=== PATIENT | male | born 1945 | race Two or more races ===

== ENCOUNTER → 2017-03-09 | Emergency (ER) | payer OTHER ==
[~2017-03-09] VITALS: Ht 167.6 cm; Wt 74.8 kg
[~2017-03-09] MED LIST: CARDIZEM LA240 MG; CIPRO500 MG; LEVOFLOXACIN500 MG PO; LIPITOR20 MG PO; MICRO-K8 MEQ PO; TOPROL XL25 M1
== END | disposition home or self-care (01) ==
LOC: ER 15:11
DX: N41.8 Other inflammatory diseases of prostate (principal); N39.0 Urinary tract infection, site not specified

== ENCOUNTER → 2017-06-29 | Emergency (ER) | payer OTHER ==
[~2017-06-29] VITALS: Ht 175.3 cm; Wt 72.6 kg
== END | disposition left against medical advice (07) ==
LOC: ER 15:04
DX: M54.2 Cervicalgia (principal); N39.0 Urinary tract infection, site not specified

== ENCOUNTER → 2017-07-12 | Outpatient (CLI) | payer OTHER | END | disposition home or self-care (01) | LOC: TOM 07:27 | DX: K59.00 Constipation, unspecified (principal) ==

== ENCOUNTER 2017-08-27 12:26 | Outpatient (CLI) | payer OTHER | END 2017-08-27 15:19 | disposition home or self-care (01) | LOC: RAD 501 12:26 | DX: M54.2 Cervicalgia (principal) ==

== ENCOUNTER 2017-12-11 11:35 | Outpatient (CLI) | payer OTHER | END 2017-12-11 12:56 | disposition home or self-care (01) | LOC: RAD 501 11:35 | DX: M25.572 Pain in left ankle and joints of left foot (principal) ==

== ENCOUNTER 2018-03-01 15:13 | Emergency (ER) | payer OTHER ==
[~2018-03-01] VITALS: Ht 175.3 cm; Wt 77.1 kg
== END 2018-03-01 20:29 | disposition home or self-care (01) ==
LOC: ER 15:13
DX: N39.0 Urinary tract infection, site not specified (principal); R31.0 Gross hematuria

== ENCOUNTER 2019-08-06 12:41 | Outpatient (CLI) | payer OTHER | END 2019-08-06 12:45 | disposition home or self-care (01) | LOC: RAD 12:41 | PROVIDERS: ATTEND General Practice | DX: M15.0 Primary generalized (osteo)arthritis (principal) ==

== ENCOUNTER 2019-09-07 14:16 | Outpatient (CLI) | payer OTHER | END 2019-09-07 15:00 | disposition home or self-care (01) | LOC: OFIC 805 14:16 | PROVIDERS: ATTEND Otolaryngology | DX: M26.623 Arthralgia of bilateral temporomandibular joint (principal); H61.23 Impacted cerumen, bilateral ==

== ENCOUNTER 2019-12-08 10:24 | Outpatient (CLI) | payer OTHER ==
[2019-12-11] MEDS ORDERED: DILTIAZEM 24HR180 MG (14:21)
== END 2019-12-08 11:58 | disposition home or self-care (01) ==
LOC: NUCLEAR 10:24
PROVIDERS: ATTEND Physical Medicine & Rehabilitation
DX: I73.9 Peripheral vascular disease, unspecified (principal); I87.2 Venous insufficiency (chronic) (peripheral)

== ENCOUNTER 2019-12-09 11:14 | Outpatient (CLI) | payer OTHER ==
[2019-12-11] MEDS ORDERED: DILTIAZEM 24HR180 MG (14:21)
== END 2019-12-09 11:17 | disposition home or self-care (01) ==
LOC: NUCLEAR 11:14
PROVIDERS: ATTEND Physical Medicine & Rehabilitation
DX: I73.9 Peripheral vascular disease, unspecified (principal)

== ENCOUNTER → 2019-12-11 | Emergency (ER) | payer OTHER ==
[~2019-12-11] VITALS: Ht 175.3 cm; Wt 81.2 kg
[~2019-12-11] MED LIST changes: +DILTIAZEM 24HR180 MG
== END | disposition left against medical advice (07) ==
LOC: ER 13:48
DX: Z53.20 Procedure and treatment not carried out because of patient's decision for unspecified reasons (principal)

== ENCOUNTER 2020-04-19 13:12 | Outpatient (CLI) | payer OTHER | END 2020-04-19 13:18 | disposition home or self-care (01) | LOC: MRI 13:12 | PROVIDERS: ATTEND Physical Medicine & Rehabilitation | DX: M48.02 Spinal stenosis, cervical region (principal); M50.323 Other cervical disc degeneration at C6-C7 level | CPT/HCPCS: 72141 ==

== ENCOUNTER → 2020-04-29 | Outpatient (CLI) | payer OTHER | END | disposition home or self-care (01) | LOC: RAD 15:21 | PROVIDERS: ATTEND Urology | DX: M54.5 Low back pain (principal) ==

== ENCOUNTER 2020-05-18 14:54 | Outpatient (CLI) | payer OTHER | END 2020-05-18 15:04 | disposition home or self-care (01) | LOC: RAD 14:54 | PROVIDERS: ATTEND Internal Medicine Cardiovascular Disease | DX: R06.02 Shortness of breath (principal); I11.9 Hypertensive heart disease without heart failure ==

== ENCOUNTER → 2020-07-07 | Outpatient (CLI) | payer OTHER | END | disposition home or self-care (01) | LOC: SONOGRAMA 13:53 → MAMO-SONO 14:15 | PROVIDERS: ATTEND General Practice | DX: E04.0 Nontoxic diffuse goiter (principal); E11.69 Type 2 diabetes mellitus with other specified complication; E78.2 Mixed hyperlipidemia; Z68.28 Body mass index [BMI] 28.0-28.9, adult; I11.9 Hypertensive heart disease without heart failure; E66.3 Overweight; E55.9 Vitamin D deficiency, unspecified; E56.8 Deficiency of other vitamins; E05.00 Thyrotoxicosis with diffuse goiter without thyrotoxic crisis or storm ==

== ENCOUNTER 2021-01-18 09:15 | Outpatient (CLI) | payer OTHER | END 2021-01-18 09:30 | disposition home or self-care (01) | LOC: PPH VACUNA 09:15 | PROVIDERS: ATTEND Emergency Medicine Pediatric Emergency Medicine | DX: Z23 Encounter for immunization (principal) ==

== ENCOUNTER 2021-08-02 14:00 | Outpatient (CLI) | payer OTHER | END 2021-08-02 14:10 | disposition home or self-care (01) | LOC: PPH VACUNA 14:00 | PROVIDERS: ATTEND Emergency Medicine Pediatric Emergency Medicine | DX: Z23 Encounter for immunization (principal) ==

== ENCOUNTER 2021-10-20 13:13 | Outpatient (CLI) | payer OTHER | END 2021-10-20 13:14 | disposition home or self-care (01) | LOC: NUCLEAR 13:13 | PROVIDERS: ATTEND Internal Medicine Endocrinology, Diabetes & Metabolism | DX: Z13.820 Encounter for screening for osteoporosis (principal); M85.89 Other specified disorders of bone density and structure, multiple sites ==

== ENCOUNTER 2022-03-05 18:06 | Emergency (ER) | payer OTHER ==
[~2022-03-05] VITALS: Ht 175.3 cm; Wt 81.2 kg
[2022-03-05] MEDS ORDERED: BACTRIM DS TAB1 EACH PO (19:40)
== END 2022-03-05 20:06 | disposition home or self-care (01) ==
LOC: ER 18:06
DX: T83.84XA Pain due to genitourinary prosthetic devices, implants and grafts, initial encounter (principal); I10 Essential (primary) hypertension; N40.0 Benign prostatic hyperplasia without lower urinary tract symptoms; N39.0 Urinary tract infection, site not specified

== ENCOUNTER 2022-03-22 16:04 | Emergency (ER) | payer OTHER ==
[~2022-03-22] VITALS: Ht 175.3 cm; Wt 81.2 kg
[~2022-03-22 16:04] MED LIST changes: +BACTRIM DS TAB1 EACH PO
== END 2022-03-22 22:48 | disposition left against medical advice (07) ==
LOC: ER 16:04
DX: Z53.21 Procedure and treatment not carried out due to patient leaving prior to being seen by health care provider (principal)

== ENCOUNTER 2022-06-09 04:28 | Emergency (ER) | payer OTHER ==
[~2022-06-09] VITALS: Ht 175.3 cm; Wt 81.2 kg
[2022-06-09] MEDS ORDERED: GLUMETZA500 MG PO (04:37)
[2022-06-09] MEDS ORDERED: XARELTO10 MG PO (04:37)
== END 2022-06-09 09:12 | disposition home or self-care (01) ==
LOC: ER 04:28
DX: T83.011A Breakdown (mechanical) of indwelling urethral catheter, initial encounter (principal); R30.0 Dysuria; N39.0 Urinary tract infection, site not specified

== ENCOUNTER 2023-01-03 15:06 | Outpatient (CLI) | payer OTHER ==
[~2023-01-03 15:06] MED LIST changes: +GLUMETZA500 MG PO; +XARELTO10 M1; +XARELTO10 MG PO
== END 2023-01-03 15:20 | disposition home or self-care (01) ==
LOC: TOM 15:06
PROVIDERS: ATTEND Urology
DX: R33.9 Retention of urine, unspecified (principal); K40.90 Unilateral inguinal hernia, without obstruction or gangrene, not specified as recurrent; R10.30 Lower abdominal pain, unspecified

== ENCOUNTER 2023-09-05 17:02 | Emergency (ER) | payer OTHER ==
[~2023-09-05] VITALS: Ht 175.3 cm; Wt 83.5 kg
[~2023-09-05 17:02] MED LIST changes: +ARICEPT10 MG PO; +DILTIAZEM HCL60 MG PO; +LOSARTAN POTASS50 MG PO; +METOPROLOL SUC100 MG PO; +XARELTO10 MG
[2023-09-05 20:06] LABS: HEMATOCRIT 40.9 % (39.0-48.0); HEMOGLOBIN 13.9 g/dL (13-16.00); MEAN CELL VOLUME 89.6 fL (80.0-100.00); MEAN CORPUSCULAR HEMOGLOBIN 30.4 pg (27.00-32.0); MEAN CORPUSCULAR HGB CONC 33.9 g/dl (32.0-36.0); PLATELET COUNT 143 K/uL (150-450); RED BLOOD COUNT 4.56 M/uL (4.00-6.00); RED CELL DISTRIBUTION WIDTH 14.5 % (11.5-14.5)
[2023-09-05 20:18] LABS: URINE APPEARANCE Cloudy; URINE BILIRRUBIN Negative (NEGATIVE); URINE BLOOD Small; URINE COLOR Dark Yellow; URINE GLUCOSE Negative (NEGATIVE); URINE LEUKOCYTE Moderate; URINE NITRATE Positive; URINE PROTEIN 30 (NEGATIVE); URINE UROBILINOGEN 0.2 E.U./dl
[2023-09-05 20:26] LABS: URINE EPITHELIAL CELLS 21.4 uL (0.0-38.8); URINE RBC 92.2 uL (0.0-20.8); URINE WBC 338.7 uL (0.0-23.2)
[2023-09-05 20:58] LABS: URINE BACTERIA > 9821.5 uL (0.0-1933); URINE MUCUS MODERATE
[2023-09-05] MEDS ORDERED: CIPRO500 MG PO (21:48)
== END 2023-09-05 23:02 | disposition home or self-care (01) ==
LOC: ER 17:02
PROVIDERS: Emergency Medicine
DX: U07.1 COVID-19 (principal); N39.0 Urinary tract infection, site not specified; J00 Acute nasopharyngitis [common cold]; I10 Essential (primary) hypertension; E11.9 Type 2 diabetes mellitus without complications; Z79.84 Long term (current) use of oral hypoglycemic drugs

== ENCOUNTER 2023-10-15 19:01 | Emergency (ER) | payer OTHER ==
[~2023-10-15] VITALS: Ht 175.3 cm; Wt 75.7 kg
[~2023-10-15 19:01] MED LIST changes: +CIPRO500 MG PO
[2023-10-15] MEDS ORDERED: KETOROLAC TROMETHAMINE 60 MG VIAL IM ONE (19:45)
[2023-10-15] MEDS ORDERED: TAMSULOSIN HCL 0.4 MG CAP PO ONE (19:45)
[2023-10-15 20:27] LABS: HEMATOCRIT 41.6 % (39.0-48.0); HEMOGLOBIN 14.1 g/dL (13-16.00); MEAN CELL VOLUME 90.2 fL (80.0-100.00); MEAN CORPUSCULAR HEMOGLOBIN 30.6 pg (27.00-32.0); MEAN CORPUSCULAR HGB CONC 33.9 g/dl (32.0-36.0); PLATELET COUNT 192 K/uL (150-450); RED BLOOD COUNT 4.61 M/uL (4.00-6.00)
[2023-10-15 20:47] LABS: ALBUMIN 4.1 gm/dL (3.4-5.0); BILIRUBIN TOTAL 1.31 mg/dL (0.3-1.2); CALCIUM 9.2 mg/dL (8.5-10.1); CREATININE SERUM 1.01 mg/dL (0.70-1.30); GFR 71.63; POTASSIUM 3.65 mEq/L (3.5-5.1); TOTAL PROTEIN 8.1 gm/dL (6.4-8.2)
== END 2023-10-16 02:39 | disposition home or self-care (01) ==
LOC: ER 19:01
PROVIDERS: General Practice
DX: R10.2 Pelvic and perineal pain (principal); T83.9XXA Unspecified complication of genitourinary prosthetic device, implant and graft, initial encounter; I10 Essential (primary) hypertension; E11.9 Type 2 diabetes mellitus without complications; Z79.84 Long term (current) use of oral hypoglycemic drugs
CPT/HCPCS: 36415; 51702; 74176; 96372; 99284; J1885

== ENCOUNTER 2024-02-04 15:46 | Emergency (ER) | payer OTHER ==
[~2024-02-04] VITALS: Ht 175.3 cm; Wt 81.2 kg
[2024-02-04 17:00] VITALS: BP 154/85; O2SAT 99
[2024-02-04] MEDS ORDERED: FAMOTIDINE/PF 20 MG/2 ML VIAL IV PUSH STA (19:13)
[2024-02-04] MEDS ORDERED: BACLOFEN 10 MG TABLET PO STA (19:13)
[2024-02-04 20:40] LABS: HEMATOCRIT 43.6 % (39.0-48.0); HEMOGLOBIN 15.1 g/dL (13-16.00); MEAN CELL VOLUME 90.8 fL (80.0-100.00); MEAN CORPUSCULAR HEMOGLOBIN 31.5 pg (27.00-32.0); MEAN CORPUSCULAR HGB CONC 34.7 g/dl (32.0-36.0); PLATELET COUNT 174 K/uL (150-450); RED CELL DISTRIBUTION WIDTH 14.2 % (11.5-14.5)
[2024-02-04 21:25] LABS: CALCIUM 8.6 mg/dL (8.5-10.1); CREATININE SERUM 1.03 mg/dL (0.70-1.30); GFR 70.03; POTASSIUM 3.72 mEq/L (3.5-5.1)
[2024-02-04] MEDS ORDERED: PEPCID AC20 MG PO (22:26)
[2024-02-04] MEDS ORDERED: BACLOFEN5 MG PO (22:26)
== END 2024-02-04 22:44 | disposition home or self-care (01) ==
LOC: ER 15:46
PROVIDERS: General Practice
DX: R06.6 Hiccough (principal); E11.9 Type 2 diabetes mellitus without complications; Z79.84 Long term (current) use of oral hypoglycemic drugs; I10 Essential (primary) hypertension
CPT/HCPCS: 36415; 96365; 99283; J3490

== ENCOUNTER 2024-03-05 15:23 | Emergency (ER) | payer OTHER ==
[~2024-03-05] VITALS: Ht 175.3 cm; Wt 81.2 kg
[~2024-03-05 15:23] MED LIST changes: +BACLOFEN5 MG PO; +PEPCID AC20 MG PO
== END 2024-03-05 19:31 | disposition home or self-care (01) ==
LOC: ER 15:25
DX: Z46.6 Encounter for fitting and adjustment of urinary device (principal); T83.018A Breakdown (mechanical) of other urinary catheter, initial encounter; X58.XXXA Exposure to other specified factors, initial encounter; I10 Essential (primary) hypertension

== ENCOUNTER 2024-03-09 12:27 | Emergency (ER) | payer OTHER ==
[~2024-03-09] VITALS: Ht 175.3 cm; Wt 72.6 kg
[2024-03-09] MEDS ORDERED: PROMETHAZINE HCL 25 MG/ML AMPUL ONE (13:49)
[2024-03-09 14:21] LABS: URINE APPEARANCE Cloudy; URINE BILIRRUBIN Negative (NEGATIVE); URINE BLOOD Negative; URINE COLOR Yellow; URINE GLUCOSE Negative (NEGATIVE); URINE KETONE Trace (NEGATIVE); URINE LEUKOCYTE Moderate; URINE NITRATE Positive; URINE PROTEIN Trace (NEGATIVE); URINE UROBILINOGEN 0.2 E.U./dl
[2024-03-09 14:22] LABS: URINE CAST 1.91 uL (0.0-1.40); URINE EPITHELIAL CELLS 15.3 uL (0.0-38.8); URINE RBC 6.4 uL (0.0-20.8); URINE WBC 351.4 uL (0.0-23.2)
[2024-03-09 14:23] LABS: HEMATOCRIT 45.4 % (39.0-48.0); HEMOGLOBIN 15.3 g/dL (13-16.00); MEAN CELL VOLUME 90.8 fL (80.0-100.00); MEAN CORPUSCULAR HEMOGLOBIN 30.7 pg (27.00-32.0); MEAN CORPUSCULAR HGB CONC 33.8 g/dl (32.0-36.0); PLATELET COUNT 245 K/uL (150-450); RED CELL DISTRIBUTION WIDTH 13.7 % (11.5-14.5)
[2024-03-09 14:44] LABS: CALCIUM 9.3 mg/dL (8.5-10.1); CREATININE SERUM 0.96 mg/dL (0.70-1.30); GFR 75.95; POTASSIUM 3.7 mEq/L (3.5-5.1)
[2024-03-09 14:45] LABS: URINE BACTERIA > 9821.5 uL (0.0-1933)
[2024-03-09] MEDS ORDERED: levoFLOXacin IN DEXTROSE 5 % 500MG/100ML PIGGYBAG IV ONE (15:24)
== END 2024-03-09 16:43 | disposition home or self-care (01) ==
LOC: ER 12:27
PROVIDERS: Emergency Medicine
DX: R30.0 Dysuria (principal); N39.0 Urinary tract infection, site not specified